=== PATIENT | male | born 1950 | race Caucasian/White ===

== ENCOUNTER 2020-05-18 01:52 | Inpatient (IN) | payer MEDICARE, OTHER ==
[~2020-05-18] VITALS: Ht 182.9 cm; Wt 104.5 kg
[2020-05-18 03:02] LABS: HEMOGLOBIN 7.1 gm/dl (14.0-17.5); RED BLOOD COUNT 2.44 M/UL (4.20-5.50); WHITE BLOOD COUNT 19.2 K/UL (4.5-11.0)
[2020-05-18] MEDS ORDERED: MEDROL TAB 4 MG4 MG PO (03:03)
[2020-05-18] MEDS ORDERED: DULOXETINE HCL60 MG PO (03:04)
[2020-05-18] MEDS ORDERED: TIZANIDINE HCL4 MG PO (03:04)
[2020-05-18] MEDS ORDERED: XARELTO 10 MG T10 MG PO (03:04)
[2020-05-18] MEDS ORDERED: IRBESARTAN150 MG PO (03:05)
[2020-05-18] MEDS ORDERED: MIRTAZAPINE15 MG PO (03:05)
[2020-05-18] MEDS ORDERED: ISOSORBIDE MONO60 MG PO (03:06)
[2020-05-18] MEDS ORDERED: PLAVIX75 MG PO (03:07)
[2020-05-18] MEDS ORDERED: FERROUS GLUCON324 M1 PO (03:07)
[2020-05-18] MEDS ORDERED: AMIODARONE HCL200 MG PO (03:07)
[2020-05-18] MEDS ORDERED: VITAMIN D325 MCG PO (03:08)
[2020-05-18] MEDS ORDERED: LIPITOR40 MG PO (03:08)
[2020-05-18] MEDS ORDERED: ASPIRIN81 MG PO (03:08)
[2020-05-18 03:25] LABS: BUN/CREATININE RATIO 28 (0-10)
[2020-05-19 04:51] LABS: HEMOGLOBIN 7.5 gm/dl (14.0-17.5)
[2020-05-19 04:54] LABS: RED BLOOD COUNT 2.71 M/UL (4.20-5.50)
[2020-05-21 02:25] LABS: WHITE BLOOD COUNT 20.2 K/UL (4.5-11.0)
[2020-05-21 02:45] LABS: RED BLOOD COUNT 2.28 M/UL (4.20-5.50)
[2020-05-21 02:47] LABS: HEMOGLOBIN 6.2 gm/dl (14.0-17.5)
--- NOTE | 2020-05-22 00:30 | NUR ---
2nd UNIT OF PRBC'S WAS STARTED. UNIT #[id number]. UNIT STARTED AT RATE OF 50CC/HR. STAYED WITH PT FOR 15 MINS. NO S/S'S OF REACTION NOTED. RATE THEN INCREASED TO 125CC/HR AFTER 15 MINS WERE UP. WILL CONTINUE TO MONITOR PT.
--- NOTE | 2020-05-22 02:30 | NUR ---
2nd UNIT OF PRBC'S #[id number] HAS FINISHED. NO S/S'S OF REACTIONS NOTED. WILL CONTINUE TO MONITOR PT.
[2020-05-22 04:17] LABS: HEMOGLOBIN 8.4 gm/dl (14.0-17.5)
[2020-05-23 02:56] LABS: HEMOGLOBIN 8.6 gm/dl (14.0-17.5); WHITE BLOOD COUNT 19.2 K/UL (4.5-11.0)
[2020-05-23 02:57] LABS: RED BLOOD COUNT 3.16 M/UL (4.20-5.50)
[2020-05-23 03:20] LABS: BUN/CREATININE RATIO 37 (0-10)
--- NOTE | 2020-05-24 12:49 | NUR ---
20G X 10CM MIDLINE PLACED IN THE RIGHT BASILIC VEIN UNDER ULTRASOUND GUIDANCE. ASPIRATES AND FLUSHES WELL. LOT# [id number].
[2020-05-25 03:24] LABS: BUN/CREATININE RATIO 38 (0-10)
[2020-05-26 05:20] LABS: HEMOGLOBIN 9.3 gm/dl (14.0-17.5); RED BLOOD COUNT 3.34 M/UL (4.20-5.50); WHITE BLOOD COUNT 21.7 K/UL (4.5-11.0)
[2020-05-27 06:10] LABS: HEMOGLOBIN 9.3 gm/dl (14.0-17.5); RED BLOOD COUNT 3.35 M/UL (4.20-5.50); WHITE BLOOD COUNT 23.2 K/UL (4.5-11.0)
[2020-05-27 06:32] LABS: BUN/CREATININE RATIO 34 (0-10)
[2020-05-28 06:46] LABS: HEMOGLOBIN 9.2 gm/dl (14.0-17.5); RED BLOOD COUNT 3.33 M/UL (4.20-5.50); WHITE BLOOD COUNT 23.4 K/UL (4.5-11.0)
[2020-05-28 07:12] LABS: BUN/CREATININE RATIO 38 (0-10)
[2020-05-29 02:42] LABS: HEMOGLOBIN 9.2 gm/dl (14.0-17.5); RED BLOOD COUNT 3.29 M/UL (4.20-5.50); WHITE BLOOD COUNT 22.6 K/UL (4.5-11.0)
[2020-05-30 04:06] LABS: HEMOGLOBIN 9.3 gm/dl (14.0-17.5); RED BLOOD COUNT 3.34 M/UL (4.20-5.50); WHITE BLOOD COUNT 22.3 K/UL (4.5-11.0)
[2020-05-30 04:28] LABS: BUN/CREATININE RATIO 34 (0-10)
[2020-05-30] MEDS ORDERED: IPRAT-ALBUT 0.5-3 ML NEB (09:59)
[2020-05-31 02:48] LABS: HEMOGLOBIN 9.7 gm/dl (14.0-17.5); RED BLOOD COUNT 3.46 M/UL (4.20-5.50)
[2020-05-31 03:03] LABS: WHITE BLOOD COUNT 16.3 K/UL (4.5-11.0)
[2020-05-31 03:04] LABS: BUN/CREATININE RATIO 33 (0-10)
[2020-06-01 03:14] LABS: HEMOGLOBIN 8.8 gm/dl (14.0-17.5); WHITE BLOOD COUNT 13.6 K/UL (4.5-11.0)
[2020-06-01 03:25] LABS: RED BLOOD COUNT 3.11 M/UL (4.20-5.50)
[2020-06-01 03:34] LABS: BUN/CREATININE RATIO 32 (0-10)
[2020-06-02 03:26] LABS: HEMOGLOBIN 8.4 gm/dl (14.0-17.5); RED BLOOD COUNT 2.88 M/UL (4.20-5.50); WHITE BLOOD COUNT 11.4 K/UL (4.5-11.0)
[2020-06-02 03:43] LABS: BUN/CREATININE RATIO 28 (0-10)
[2020-06-03 02:55] LABS: HEMOGLOBIN 8.9 gm/dl (14.0-17.5); RED BLOOD COUNT 3.1 M/UL (4.20-5.50); WHITE BLOOD COUNT 10.4 K/UL (4.5-11.0)
[2020-06-03 03:17] LABS: BUN/CREATININE RATIO 23 (0-10)
[2020-06-04 04:54] LABS: HEMOGLOBIN 8.3 gm/dl (14.0-17.5); RED BLOOD COUNT 2.89 M/UL (4.20-5.50)
[2020-06-04 05:14] LABS: BUN/CREATININE RATIO 20 (0-10)
[2020-06-05 04:26] LABS: HEMOGLOBIN 8.3 gm/dl (14.0-17.5); RED BLOOD COUNT 2.84 M/UL (4.20-5.50); WHITE BLOOD COUNT 9.6 K/UL (4.5-11.0)
[2020-06-05 04:44] LABS: BUN/CREATININE RATIO 20 (0-10)
[2020-06-06 03:37] LABS: BUN/CREATININE RATIO 27 (0-10)
[2020-06-06 04:03] LABS: HEMOGLOBIN 7.8 gm/dl (14.0-17.5); RED BLOOD COUNT 2.86 M/UL (4.20-5.50); WHITE BLOOD COUNT 7.2 K/UL (4.5-11.0)
[2020-06-07 06:39] LABS: HEMOGLOBIN 7.9 gm/dl (14.0-17.5); RED BLOOD COUNT 2.83 M/UL (4.20-5.50)
[2020-06-07 07:11] LABS: BUN/CREATININE RATIO 21 (0-10)
[2020-06-08 07:37] LABS: BUN/CREATININE RATIO 21 (0-10)
[2020-06-08 07:53] LABS: HEMOGLOBIN 8.1 gm/dl (14.0-17.5); WHITE BLOOD COUNT 6.2 K/UL (4.5-11.0)
--- NOTE | 2020-06-09 00:55 | NUR ---
0035 PATIENT HARD TO AROUSE WILL BARLEY OPEN EYES AND CLOSES THEM RIGHT BACK. PATIENT IS ON 50% AIRVO. PATIENT CONFUSED AT TIMES. DR. DICKINSON NOTIFIED, NEW ORDERS NOTED.
--- NOTE | 2020-06-09 01:30 | NUR ---
0130 DR. DICKINSON NOTIFIED OF ABG RESULTS. PT STILL HARD TO AROUSE WILL OPEN EYES AND CLOSE THEM RIGHT. DR. DICKINSON NOTIFIED V/S BP AND O2 WNL. aCCU CHECK 106. NO NEW ORDERS AT THIS TIME.
--- NOTE | 2020-06-09 04:31 | NUR ---
0252 PATIENT AWAKE MOVING ALL OVER BED. HOLLERING AT TIMES. PULLING PULSE OX OFF. PATIENT C/O ACHING PAIN ALL OVER. PATIENT STATES MY JOINTS HURT. SEE EMAR.
[2020-06-09 07:55] LABS: BUN/CREATININE RATIO 22 (0-10)
[2020-06-10 04:27] LABS: RED BLOOD COUNT 2.89 M/UL (4.20-5.50); WHITE BLOOD COUNT 5.9 K/UL (4.5-11.0)
[2020-06-10 04:50] LABS: BUN/CREATININE RATIO 18 (0-10)
[2020-06-11 02:51] LABS: BUN/CREATININE RATIO 13 (0-10)
[2020-06-12 05:51] LABS: BUN/CREATININE RATIO 13 (0-10)
[2020-06-12 06:03] LABS: HEMOGLOBIN 8.4 gm/dl (14.0-17.5); RED BLOOD COUNT 3.05 M/UL (4.20-5.50); WHITE BLOOD COUNT 6.5 K/UL (4.5-11.0)
[2020-06-13 03:44] LABS: HEMOGLOBIN 8.5 gm/dl (14.0-17.5); RED BLOOD COUNT 3.05 M/UL (4.20-5.50)
[2020-06-13 04:16] LABS: BUN/CREATININE RATIO 14 (0-10)
[2020-06-14 03:16] LABS: HEMOGLOBIN 8.6 gm/dl (14.0-17.5); RED BLOOD COUNT 3.14 M/UL (4.20-5.50); WHITE BLOOD COUNT 7.5 K/UL (4.5-11.0)
[2020-06-14 04:03] LABS: BUN/CREATININE RATIO 16 (0-10)
[2020-06-15 06:12] LABS: HEMOGLOBIN 8.9 gm/dl (14.0-17.5); RED BLOOD COUNT 3.34 M/UL (4.20-5.50); WHITE BLOOD COUNT 8.3 K/UL (4.5-11.0)
[2020-06-16 07:03] LABS: RED BLOOD COUNT 3.35 M/UL (4.20-5.50); WHITE BLOOD COUNT 9.2 K/UL (4.5-11.0)
[2020-06-17 06:27] LABS: HEMOGLOBIN 9.2 gm/dl (14.0-17.5); RED BLOOD COUNT 3.34 M/UL (4.20-5.50); WHITE BLOOD COUNT 10.1 K/UL (4.5-11.0)
[2020-06-19 03:22] LABS: HEMOGLOBIN 8.8 gm/dl (14.0-17.5); RED BLOOD COUNT 3.29 M/UL (4.20-5.50)
[2020-06-19 03:23] LABS: WHITE BLOOD COUNT 13.4 K/UL (4.5-11.0)
[2020-06-20 06:35] LABS: HEMOGLOBIN 9.3 gm/dl (14.0-17.5); RED BLOOD COUNT 3.39 M/UL (4.20-5.50); WHITE BLOOD COUNT 10.9 K/UL (4.5-11.0)
[2020-06-21 05:51] LABS: RED BLOOD COUNT 3.26 M/UL (4.20-5.50); WHITE BLOOD COUNT 11.5 K/UL (4.5-11.0)
[2020-06-22 06:25] LABS: RED BLOOD COUNT 3.3 M/UL (4.20-5.50); WHITE BLOOD COUNT 12.4 K/UL (4.5-11.0)
[2020-06-23 06:56] LABS: HEMOGLOBIN 8.8 gm/dl (14.0-17.5); RED BLOOD COUNT 3.33 M/UL (4.20-5.50)
[2020-06-24 03:18] LABS: RED BLOOD COUNT 3.3 M/UL (4.20-5.50); WHITE BLOOD COUNT 13.8 K/UL (4.5-11.0)
[2020-06-25 03:36] LABS: HEMOGLOBIN 8.5 gm/dl (14.0-17.5); RED BLOOD COUNT 3.11 M/UL (4.20-5.50); WHITE BLOOD COUNT 13.7 K/UL (4.5-11.0)
[2020-06-26 03:48] LABS: HEMOGLOBIN 8.8 gm/dl (14.0-17.5); RED BLOOD COUNT 3.24 M/UL (4.20-5.50); WHITE BLOOD COUNT 13.6 K/UL (4.5-11.0)
--- NOTE | 2020-06-26 15:45 | NUR ---
PATIENT HAS TEMP OF 100.1 PHYSICIAN NOTIFIED.
--- NOTE | 2020-06-26 15:57 | NUR ---
PROVIDER ORDERED TYLENOL FOR PATIENTS TEMP OF 100.1
[2020-06-26 16:55] LABS: BORDETELLA PARAPERTUSSIS Not Detected (Not Detectd); BORDETELLA PERTUSSIS Not Detected (Not Detectd); CHLAMYDIA PNEUMONIAE Not Detected (Not Detectd); CORONAVIRUS HKU1 Not Detected (Not Detectd); CORONAVIRUS NL63 Not Detected (Not Detectd); CORONAVIRUS OC43 Not Detected (Not Detectd); CORONOAVIRUS 229E Not Detected (Not Detectd); HUMAN METAPNEUMOVIRUS Not Detected (Not Detectd); HUMAN RHINOVIRUS/ENTEROVIRUS Not Detected (Not Detectd); INFLUENZA A Not Detected (Not Detectd); INFLUENZA B Not Detected (Not Detectd); MYCOPLASMA PNEUMONIAE Not Detected (Not Detectd); PARAINFLUENZA VIRUS 1 Not Detected (Not Detectd); PARAINFLUENZA VIRUS 2 Not Detected (Not Detectd); PARAINFLUENZA VIRUS 3 Not Detected (Not Detectd); PARAINFLUENZA VIRUS 4 Not Detected (Not Detectd); RESPIRATORY SYNCYTIAL VIRUS Not Detected (Not Detectd)
[2020-06-26 17:51] LABS: SARS-CoV-2 NOT DETECTED (Not Detectd)
--- NOTE | 2020-06-26 18:16 | NUR ---
CALLED DR PHILLIPS ABOUT INCREASED CONFUSION OF PATIENT. ORDERS FOR LABS, BLADDER SCAN, AND IN AND OUT CATH PUT IN BY DR. PHILLIPS.
[2020-06-27 02:27] LABS: HEMOGLOBIN 8.5 gm/dl (14.0-17.5); RED BLOOD COUNT 3.09 M/UL (4.20-5.50)
[2020-06-28 04:06] LABS: HEMOGLOBIN 8.2 gm/dl (14.0-17.5); RED BLOOD COUNT 3.06 M/UL (4.20-5.50); WHITE BLOOD COUNT 10.4 K/UL (4.5-11.0)
[2020-06-29] MEDS ORDERED: REMERON 15 MG T15 MG PO (10:12)
[2020-06-29] MEDS ORDERED: MS CONTIN TAB S15 MG PO (10:12)
[2020-06-29] MEDS ORDERED: NICOTINE PATCH1 EAC1 TD (10:12)
[2020-06-29] MEDS ORDERED: OXYCODONE HCL5 MG PO (10:12)
[2020-06-29] MEDS ORDERED: FLOMAX 0.4 MG0.4 MG PO (10:12)
[2020-06-29] MEDS ORDERED: ELIQUIS 5 MG TAB5 MG PO (10:12)
[2020-06-29] MEDS ORDERED: MYCOSTATIN100000 UTS PO (10:12)
[2020-06-29] MEDS ORDERED: LOPRESSOR 25 MG25 MG PO (10:12)
[2020-06-29] MEDS ORDERED: CHRONULAC20 GM/30 M PO (10:12)
[2020-06-29] MEDS ORDERED: THERAGRAN M TAB1 EA PO (10:12)
[2020-06-29] MEDS ORDERED: DULOXETINE HCL30 MG PO (10:12)
[2020-06-29] MEDS ORDERED: ASPIRIN EC81 MG PO (10:12)
[2020-06-29] MEDS ORDERED: STIMULANT LAXA1 EACH PO (10:12)
[2020-06-29] MEDS ORDERED: FERROUS SULFAT325 M2 PO (10:12)
[2020-06-29] MEDS ORDERED: PREDNISONE1 MG PO (10:12)
[2020-06-29] MEDS ORDERED: ATORVASTATIN CA20 MG PO (10:12)
[2020-06-29] MEDS ORDERED: ROXICODONE15 MG PO (12:02)
[2020-06-29] MEDS ORDERED: MORPHINE SULFAT30 M2 PO (12:03)
== END 2020-06-29 18:40 | DRG 177 ==
LOC: PROG CARE 01:52 → MED SURG 4 01:59 → PROG CARE 01:59 → MED SURG 4 06-04 16:29
PROVIDERS: Family Medicine; Internal Medicine; Internal Medicine Infectious Disease; ADMIT Hospitalist
PROC: 30233N1 Transfusion of Nonautologous Red Blood Cells into Peripheral Vein, Percutaneous Approach (ICD-10-PCS; principal; 2020-05-21)
DX: J15.6 Pneumonia due to other Gram-negative bacteria (principal); G92 Toxic encephalopathy; J96.21 Acute and chronic respiratory failure with hypoxia; I50.33 Acute on chronic diastolic (congestive) heart failure; J44.0 Chronic obstructive pulmonary disease with (acute) lower respiratory infection; E87.2 Acidosis; F11.23 Opioid dependence with withdrawal; N17.9 Acute kidney failure, unspecified; K59.00 Constipation, unspecified; I25.10 Atherosclerotic heart disease of native coronary artery without angina pectoris; F17.200 Nicotine dependence, unspecified, uncomplicated; M19.90 Unspecified osteoarthritis, unspecified site; K21.9 Gastro-esophageal reflux disease without esophagitis; F32.9 Major depressive disorder, single episode, unspecified; L89.312 Pressure ulcer of right buttock, stage 2; N18.30 Chronic kidney disease, stage 3 unspecified; G47.33 Obstructive sleep apnea (adult) (pediatric); N40.0 Benign prostatic hyperplasia without lower urinary tract symptoms; Z51.5 Encounter for palliative care; Z20.822 Contact with and (suspected) exposure to COVID-19; L89.152 Pressure ulcer of sacral region, stage 2; F41.9 Anxiety disorder, unspecified; E66.9 Obesity, unspecified; D50.9 Iron deficiency anemia, unspecified; G89.29 Other chronic pain; I48.0 Paroxysmal atrial fibrillation; M47.816 Spondylosis without myelopathy or radiculopathy, lumbar region; E87.6 Hypokalemia; Z95.5 Presence of coronary angioplasty implant and graft; Z87.442 Personal history of urinary calculi; Z91.040 Latex allergy status; Z80.42 Family history of malignant neoplasm of prostate; Z79.899 Other long term (current) drug therapy; Z98.890 Other specified postprocedural states; Z91.041 Radiographic dye allergy status; Z82.3 Family history of stroke; Z79.82 Long term (current) use of aspirin; Z79.02 Long term (current) use of antithrombotics/antiplatelets; Z79.01 Long term (current) use of anticoagulants; Z68.32 Body mass index [BMI] 32.0-32.9, adult
CPT/HCPCS: ECHO; 0240U; 36415; 36430; 36600; 71045; 71046; 71250; 78580; 80048; 80053; 80202; 80307; 81001; 82140; 82550; 82553; 82728; 82803; 82962; 83540; 83550; 83605; 83615; 83735; 83880; 84100; 84132; 84484; 85014; 85018; 85025; 85027; 85379; 85652; 86140; 86850; 86900; 86901; 86920; 87040; 87081; 87086; 87633; 93005; 93306; 93970; 94640; 94660; 94664; 94760; 94762; 97110; 97110-GP-CQ; 97116; 97116-GP-CQ; 97162; 97166; 97530; 97530-GP-CQ; 97535; A6212; A9540; C1751; J1100; J1205; J1650; J1756; J1940; J2185; J2212; J2270; J2543; J2920; J2930; J3370; J7070; P9016; P9047